=== PATIENT | male | born 1945 | race Caucasian/White ===

== ENCOUNTER → 2017-03-01 | Outpatient (CLI) | payer MEDICARE, OTHER | END | disposition home or self-care (01) | LOC: GMAJ 10:23 | PROVIDERS: ATTEND Family Medicine | DX: Z12.5 Encounter for screening for malignant neoplasm of prostate (principal) ==

== ENCOUNTER → 2017-04-21 | Outpatient (CLI) | payer MEDICARE, OTHER | END | disposition home or self-care (01) | LOC: GMAJ 11:17 | PROVIDERS: ATTEND Family Medicine | DX: Z51.81 Encounter for therapeutic drug level monitoring (principal) ==

== ENCOUNTER 2017-04-24 11:14 | Emergency (ER) | payer MEDICARE, OTHER ==
[2017-04-24 11:42] VITALS: TEMP 97
[2017-04-24] MEDS ORDERED: HYDROcodone 10MG/APAP 325MG 1 EA TAB PO ONE (12:21)
--- NOTE | 2017-04-24 12:35 | RAD ---
EXAM DESCRIPTION: Foot,Right 3 Views CLINICAL HISTORY: 71 years Male, Pain @ 1st MTP joint COMPARISON: None. FINDINGS: 3 views of the right foot show no acute fracture or malalignment. There is only minimal joint space narrowing at the first MTP joint with mild overlying soft tissue swelling. No focal bone lesion. There are calcaneal enthesophytes at the insertion sites of the plantar fascia and Achilles tendon. IMPRESSION: Slight joint space narrowing at the first MTP joint with overlying mild soft tissue swelling. No focal bone lesion or acute right foot abnormality. Calcaneal spurring. Electronically signed by: Abhilash Herbert MD 04/24/2017 12:33 PM CDT Workstation: [id number]
--- NOTE | 2017-04-24 13:08 | ED.PDOC ---
History of Present Illness - General Chief Complaint: Lower Extremity Injury Stated Complaint: toe pain Time Seen by Provider: 04/24/17 11:53 Source: patient, RN notes reviewed, Vital Signs reviewed Exam Limitations: no limitations - History of Present Illness Initial Comments: Patient comes to ER with c/o pain in his right great toe that started yesterday. Reports last week he stubbed his L great toe and had similar pain but denies any injury to the right. Occurred: yesterday Pain - Lower Extremity: severe: Right Foot Method of Injury: unknown Improving Factors: rest Worsening Factors: movement Allergies/Adverse Reactions: Allergies Metoclopramide [From Reglan] Allergy (Verified 04/24/17 11:34) Penicillins Allergy (Verified 04/24/17 11:34) Home Medications: Ambulatory Orders Aspirin [Baby Aspirin] 81 mg PO DAILY 04/15/14 Cholecalciferol [Vitamin D] 1,000 unit PO DAILY 04/15/14 Citalopram Hydrobromide [Celexa] 20 mg PO DAILY 04/15/14 Diltiazem HCl Coated Beads [Diltiazem Cd] 300 mg PO DAILY 04/15/14 Metformin HCl [Metformin HCl ER] 500 mg PO BID 04/15/14 Naproxen 250 mg PO DAILY 04/15/14 Niacin (Antihyperlipidemic) [Niaspan] 1,000 mg PO DAILY 04/15/14 Olmesartan Medoxomil-Hydrochlo [Benicar Hct] 1 tab PO DAILY 04/15/14 Omeprazole [Prilosec Cap] 20 mg PO DAILY 04/15/14 Ranitidine HCl [Zantac] 300 mg PO DAILY 04/15/14 ALPRAZolam [Xanax] 0.25 mg PO 03/11/15 Zolpidem Tartrate [Ambien] 5 mg PO 03/11/15 Acetaminophen W/ Codeine [Tylenol W/ CODEINE #3] 1 - 2 ea PO Q4H PRN #20 Ciprofloxacin [Cipro] 500 mg PO BID #20 tab 03/12/15 Ondansetron [Zofran Odt] 4 mg PO QID PRN #10 tab 03/12/15 metroNIDAZOLE [Flagyl] 500 mg PO TID #30 tab 03/12/15 Acetamin W/Cod #3 Tab [Tylenol w/CODEINE #3] 1 ea PO Q4HR PRN #15 tab 04/24/17 Colchicine [Mitigare] 0.6 mg PO 5XD PRN #15 cap 04/24/17 Review of Systems - Review of Systems Constitutional: States: no symptoms reported Respiratory: States: no symptoms reported Cardiology: States: no symptoms reported Musculoskeletal: States: see HPI Skin: States: no symptoms reported Neurological: States: no symptoms reported All other Systems: No Change from Baseline Past Medical History (General) - Patient Medical History Hx Seizures: No Hx Stroke: No Hx Dementia: No Hx Asthma: No Hx of COPD: No Hx Cardiac Disorders: No Hx Congestive Heart Failure: No Hx Hypertension: Yes Hx Diabetes: Yes - type II Hx Gastroesophageal Reflux: Yes Hx Renal Disease: No Hx Cancer: No Hx of HIV: No Hx Hepatitis C: No Hx MRSA: No Surgical History: cholecystectomy - Vaccination History Hx Tetanus, Diphtheria Vaccination: No Hx Influenza Vaccination: No Hx Pneumococcal Vaccination: No - Social History Hx Tobacco Use: Yes Hx Alcohol Use: No Hx Substance Use: No Hx Substance Use Treatment: No Hx Depression: No Hx Physical Abuse: No Hx Emotional Abuse: No Hx Suspected Abuse: No - Female History Patient : No Family Medical History - Family History Mother Family History: Unknown Physical Exam - Physical Exam General Appearance: Alert, Comfortable, No apparent distress, Well Developed, Well Groomed, Well Hydrated, Well Nourished Neck: supple Cardiovascular/Respiratory: normal peripheral pulses, no respiratory distress Leg: normal inspection, no evidence of injury, normal ROM Ankle: normal inspection, non-tender, no evidence of injury, normal ROM Foot: limited ROM - R 1st MTP joint, soft tissue tenderness, swelling, other - Inflammed, erythematous and warm to touch over R 1st MTP joint Mental Status: alert, oriented x 3 Skin: normal color - except as noted above, warm/dry Comments: Vital Signs 04/24/17 11:23 Temperature 97.0 F L Pulse Rate [ 76 pulse ox] Respiratory 20 Rate Blood Pressure 98/55 [Left Arm] O2 Sat by Pulse 94 L Oximetry Progress - Progress Progress: 04/24/17 13:09 Pain improved with [place] 10mg PO - Results/Orders Results/Orders: Laboratory Tests 04/24/17 12:38 Uric Acid 9.6 H - EKG/XRAY/CT XRAY: R foot: soft tissue swelling @ 1st MTP joint, o/w nl per Radiologist Departure - Departure Clinical Impression: Gout involving toe of right foot Qualifiers: Gout etiology: idiopathic Chronicity: acute Qualified Code(s): M10.071 - Idiopathic gout, right ankle and foot Time of Disposition: 13:10 Disposition: Discharge to Home or Self Care Condition: Good Departure Forms: ED Discharge - Pt. Copy, Patient Portal Self Enrollment Instructions: DI for Gout Diet: resume usual diet Activity: increase activity as tolerated Referrals: Raheem Wu MD [Primary Care Provider] - 1-2 Weeks (To recheck Uric Acid level) Prescriptions: Acetamin W/Cod #3 Tab [Tylenol w/CODEINE #3] 1 ea PO Q4HR PRN #15 tab PRN Reason: Moderate To Severe Pain Colchicine [Mitigare] 0.6 mg PO 5XD PRN #15 cap PRN Reason: Moderate To Severe Pain Home Medications: Ambulatory Orders Aspirin [Baby Aspirin] 81 mg PO DAILY 04/15/14 Cholecalciferol [Vitamin D] 1,000 unit PO DAILY 04/15/14 Citalopram Hydrobromide [Celexa] 20 mg PO DAILY 04/15/14 Diltiazem HCl Coated Beads [Diltiazem Cd] 300 mg PO DAILY 04/15/14 Metformin HCl [Metformin HCl ER] 500 mg PO BID 04/15/14 Naproxen 250 mg PO DAILY 04/15/14 Niacin (Antihyperlipidemic) [Niaspan] 1,000 mg PO DAILY 04/15/14 Olmesartan Medoxomil-Hydrochlo [Benicar Hct] 1 tab PO DAILY 04/15/14 Omeprazole [Prilosec Cap] 20 mg PO DAILY 04/15/14 Ranitidine HCl [Zantac] 300 mg PO DAILY 04/15/14 ALPRAZolam [Xanax] 0.25 mg PO 03/11/15 Zolpidem Tartrate [Ambien] 5 mg PO 03/11/15 Acetaminophen W/ Codeine [Tylenol W/ CODEINE #3] 1 - 2 ea PO Q4H PRN #20 Ciprofloxacin [Cipro] 500 mg PO BID #20 tab 03/12/15 Ondansetron [Zofran Odt] 4 mg PO QID PRN #10 tab 03/12/15 metroNIDAZOLE [Flagyl] 500 mg PO TID #30 tab 03/12/15 Acetamin W/Cod #3 Tab [Tylenol w/CODEINE #3] 1 ea PO Q4HR PRN #15 tab 04/24/17 Colchicine [Mitigare] 0.6 mg PO 5XD PRN #15 cap 04/24/17
[2017-04-24 13:26] VITALS: BP 108/70; O2SAT 93
== END 2017-04-24 13:20 | disposition home or self-care (01) ==
LOC: ER 11:14
DX: M10.071 Idiopathic gout, right ankle and foot (principal); I10 Essential (primary) hypertension; E11.9 Type 2 diabetes mellitus without complications; Z87.891 Personal history of nicotine dependence; Z79.899 Other long term (current) drug therapy; Z88.0 Allergy status to penicillin; Z88.8 Allergy status to other drugs, medicaments and biological substances

== ENCOUNTER 2017-05-01 22:02 | Emergency (ER) | payer MEDICARE, OTHER ==
[2017-05-01 22:14] VITALS: TEMP 98.2; O2SAT 97
[2017-05-01] MEDS ORDERED: ASPIRIN (CHEWABLE) 81 MG TAB PO ONE (22:21)
[2017-05-01] MEDS: NITROGLYCERIN 0.4 MG 25 EA TAB SL ONE ×2 (22:25→23:30)
--- NOTE | 2017-05-01 22:39 | RAD ---
EXAM DESCRIPTION: Chest,1 View CLINICAL HISTORY: Chest pain COMPARISON: March 11, 2015 FINDINGS: Cardiac silhouette is within normal limits. There is subsegmental atelectasis or small focus of consolidation at the right lung base. There is no other focal parenchymal or pleural disease. Visualized osseous structures are within normal limits. No pulmonary vascular engorgement. Electronic cardiac device and lead are present. IMPRESSION: Possible small focus of consolidation in the right lung base. Otherwise normal. Electronically signed by: Wisam Quintanilla 05/01/2017 10:38 PM [facility], [place]
--- NOTE | 2017-05-01 22:56 | ED.PDOC ---
History of Present Illness - General Chief Complaint: Cardiovascular Problem Stated Complaint: Chest Pain Time Seen by Provider: 05/01/17 22:19 Source: patient, RN notes reviewed, Vital Signs reviewed Exam Limitations: no limitations - History of Present Illness Initial Comments: Patient comes in with c/o chest pain/epigastric fullness that started while eating @~16:00. No SOB but pain is worse with deep breathing. No nausea or diaphoresis. He is scheduled for Cardiac artery stenting on05/04/17. Last week had a defibulator placed. Timing/Duration: 4-6 hours Severity/Quality: moderate, dull, ingestion Location: epigastric Chest Pain Radiation: no radiation Activities at Onset: other - was eating dinner Prior Chest Pain/Cardiac Workup: cardiac cath, echocardiography, heart attack Improving Factors: nothing Worsening Factors: nothing Nitro Today/Relief: no nitro taken today Aspirin Treatment Today: 81 mg x 4, provided by ED Associated Symptoms: denies symptoms Allergies/Adverse Reactions: Allergies Metoclopramide [From Reglan] Allergy (Verified 05/01/17 22:14) Penicillins Allergy (Verified 05/01/17 22:14) Home Medications: Ambulatory Orders Aspirin [Baby Aspirin] 81 mg PO DAILY 04/15/14 Cholecalciferol [Vitamin D] 1,000 unit PO DAILY 04/15/14 Citalopram Hydrobromide [Celexa] 20 mg PO DAILY 04/15/14 Diltiazem HCl Coated Beads [Diltiazem Cd] 300 mg PO DAILY 04/15/14 Metformin HCl [Metformin HCl ER] 500 mg PO BID 04/15/14 Naproxen 250 mg PO DAILY 04/15/14 Niacin (Antihyperlipidemic) [Niaspan] 1,000 mg PO DAILY 04/15/14 Olmesartan Medoxomil-Hydrochlo [Benicar Hct] 1 tab PO DAILY 04/15/14 Omeprazole [Prilosec Cap] 20 mg PO DAILY 04/15/14 Ranitidine HCl [Zantac] 300 mg PO DAILY 04/15/14 ALPRAZolam [Xanax] 0.25 mg PO 03/11/15 Zolpidem Tartrate [Ambien] 5 mg PO 03/11/15 Acetaminophen W/ Codeine [Tylenol W/ CODEINE #3] 1 - 2 ea PO Q4H PRN #20 Ciprofloxacin [Cipro] 500 mg PO BID #20 tab 03/12/15 Ondansetron [Zofran Odt] 4 mg PO QID PRN #10 tab 03/12/15 metroNIDAZOLE [Flagyl] 500 mg PO TID #30 tab 03/12/15 Acetamin W/Cod #3 Tab [Tylenol w/CODEINE #3] 1 ea PO Q4HR PRN #15 tab 04/24/17 Colchicine [Mitigare] 0.6 mg PO 5XD PRN #15 cap 04/24/17 Review of Systems - Review of Systems Constitutional: States: no symptoms reported. Denies: diaphoresis, malaise Respiratory: States: no symptoms reported. Denies: short of breath Cardiology: States: see HPI, chest pain. Denies: palpitations Gastrointestinal/Abdominal: States: no symptoms reported. Denies: nausea Musculoskeletal: States: no symptoms reported Skin: States: no symptoms reported Neurological: States: no symptoms reported All other Systems: No Change from Baseline Past Medical History (General) - Patient Medical History Hx Seizures: No Hx Stroke: No Hx Dementia: No Hx Asthma: No Hx of COPD: No Hx Cardiac Disorders: Yes Hx Congestive Heart Failure: No Hx Pacemaker: Yes - 04/28/17 Hx Hypertension: Yes Hx Thyroid Disease: No Hx Diabetes: Yes - type II Hx Gastroesophageal Reflux: Yes Hx Renal Disease: No Hx Cancer: No Hx of HIV: No Hx Hepatitis C: No Hx MRSA: No Surgical History: cholecystectomy - Vaccination History Hx Tetanus, Diphtheria Vaccination: No Hx Influenza Vaccination: No Hx Pneumococcal Vaccination: Yes - Social History Hx Tobacco Use: Yes Hx Alcohol Use: Yes Hx Substance Use: No Hx Substance Use Treatment: No Hx Depression: No Feels Threatened In Home Enviroment: No Feels Threatened In a Relationship: No Hx Physical Abuse: No Hx Emotional Abuse: No Hx Suspected Abuse: No - Female History Patient : No Family Medical History - Family History Mother Family History: Unknown Physical Exam - Physical Exam General Appearance: Alert, Comfortable, No apparent distress, Well Developed, Well Groomed, Well Hydrated, Well Nourished Neck: non-tender, full range of motion, supple, normal inspection Respiratory: chest non-tender, lungs clear, normal breath sounds, no respiratory distress, no accessory muscle use Cardiovascular/Chest: no gallop, no murmur, tachycardia Gastrointestinal/Abdominal: normal bowel sounds, non tender, soft, no organomegaly, no pulsatile mass Extremity: normal range of motion, non-tender, normal inspection Neurologic: alert, normal mood/affect, oriented x 3 Skin Exam: normal color, warm/dry Comments: Vital Signs 05/01/17 05/01/17 05/01/17 22:02 22:05 22:09 Temperature 98.2 F Pulse Rate [ 111 H 111 H 111 H monitor] Respiratory 25 H Rate Blood Pressure 149/99 [Right Arm] O2 Sat by Pulse 97 Oximetry 05/01/17 22:29 Temperature Pulse Rate [ 109 H monitor] Respiratory Rate Blood Pressure 142/99 [Right Arm] O2 Sat by Pulse Oximetry Progress - Progress Progress: 05/01/17 23:07 Still having some mild discomfort after SLNTG X1 will give a second dose Will also give Lovenox 80mg SQ 05/01/17 23:20 On re-examination patient reports pain was 6/10 - gave SLNTG X 2 and pain is now 1/10. If not completely resolved in next few minutes will give 3rd SLNTG 05/01/17 23:39 Pain free after 3rd SLNTG - Results/Orders Results/Orders: Laboratory Tests 05/01/17 05/01/17 22:25 22:25 WBC 13.0 H RBC 5.16 Hgb 14.4 Hct 42.4 MCV 82.2 MCH 27.9 MCHC 34.0 RDW 15.8 H Plt Count 204 MPV 8.2 Absolute Neuts (auto) 9.60 H Absolute Lymphs (auto) 1.90 Absolute Monos (auto) 1.10 H Absolute Eos (auto) 0.30 Absolute Basos (auto) 0.10 Neutrophils % 74.4 Lymphocytes % 14.6 L Monocytes % 8.1 Eosinophils % 2.1 Basophils % 0.8 Sodium 136 Potassium 3.9 Chloride 104 Carbon Dioxide 24 Anion Gap 11.9 L BUN 20 H Creatinine 1.58 H BUN/Creatinine Ratio 12.7 Random Glucose 125 H Serum Osmolality 276.0 Calcium 9.6 Total Bilirubin 0.9 AST 18 ALT 21 Alkaline Phosphatase 56 Creatine Kinase 53 CK-MB (CK-2) 1.3 CK-MB (CK-2) % Not Reportable Troponin I 0.28 H* Serum Total Protein 7.9 Albumin 4.1 Globulin 3.8 H Albumin/Globulin Ratio 1.1 - EKG/XRAY/CT EKG: Sinus, Tachy, LVH, ST elevation - V1 & V2 Comments: L axis deviation, Departure - Departure Clinical Impression: Acute myocardial infarction Qualifiers: Myocardial infarction ST status: non-ST elevation myocardial infarction Qualified Code(s): I21.4 - Non-ST elevation (NSTEMI) myocardial infarction Time of Disposition: 23:21 Disposition: Transfer to Hospital Condition: Poor Departure Forms: ED Discharge - Pt. Copy, Patient Portal Self Enrollment Referrals: Raheem Wu MD [Primary Care Provider] - 1-2 Weeks Home Medications: Ambulatory Orders Aspirin [Baby Aspirin] 81 mg PO DAILY 04/15/14 Cholecalciferol [Vitamin D] 1,000 unit PO DAILY 04/15/14 Citalopram Hydrobromide [Celexa] 20 mg PO DAILY 04/15/14 Diltiazem HCl Coated Beads [Diltiazem Cd] 300 mg PO DAILY 04/15/14 Metformin HCl [Metformin HCl ER] 500 mg PO BID 04/15/14 Naproxen 250 mg PO DAILY 04/15/14 Niacin (Antihyperlipidemic) [Niaspan] 1,000 mg PO DAILY 04/15/14 Olmesartan Medoxomil-Hydrochlo [Benicar Hct] 1 tab PO DAILY 04/15/14 Omeprazole [Prilosec Cap] 20 mg PO DAILY 04/15/14 Ranitidine HCl [Zantac] 300 mg PO DAILY 04/15/14 ALPRAZolam [Xanax] 0.25 mg PO 03/11/15 Zolpidem Tartrate [Ambien] 5 mg PO 03/11/15 Acetaminophen W/ Codeine [Tylenol W/ CODEINE #3] 1 - 2 ea PO Q4H PRN #20 Ciprofloxacin [Cipro] 500 mg PO BID #20 tab 03/12/15 Ondansetron [Zofran Odt] 4 mg PO QID PRN #10 tab 03/12/15 metroNIDAZOLE [Flagyl] 500 mg PO TID #30 tab 03/12/15 Acetamin W/Cod #3 Tab [Tylenol w/CODEINE #3] 1 ea PO Q4HR PRN #15 tab 04/24/17 Colchicine [Mitigare] 0.6 mg PO 5XD PRN #15 cap 04/24/17 Transfer to Outside Facility - Transfer Information Accepting Provider:: Dr. Herbert Accepting Facility: [facility] Reason for Transfer: required specialist not available
[2017-05-01] MEDS ORDERED: NITROGLYCERIN 0.4 MG 25 EA TAB SL ONE (23:06)
[2017-05-01] MEDS ORDERED: ENOXAPARIN SODIUM 80 MG/0.8 ML SYG SUBCU ONE (23:16)
[2017-05-01 23:43] VITALS: BP 133/57
== END 2017-05-01 23:46 | disposition short-term general hospital (02) ==
LOC: ER 22:02
DX: I21.4 Non-ST elevation (NSTEMI) myocardial infarction (principal); Z87.891 Personal history of nicotine dependence; E11.9 Type 2 diabetes mellitus without complications; I10 Essential (primary) hypertension; K21.9 Gastro-esophageal reflux disease without esophagitis; Z95.0 Presence of cardiac pacemaker; Z79.899 Other long term (current) drug therapy; Z88.8 Allergy status to other drugs, medicaments and biological substances; Z88.0 Allergy status to penicillin; Z79.82 Long term (current) use of aspirin; Z95.810 Presence of automatic (implantable) cardiac defibrillator
CPT/HCPCS: 36415; 71010; 80053; 82550; 82553; 84484; 85025; 93005; J1650

== ENCOUNTER → 2017-06-06 | Outpatient (CLI) | payer MEDICARE, OTHER | END | disposition home or self-care (01) | LOC: GMAJ 14:32 | PROVIDERS: ATTEND Family Medicine | DX: I25.10 Atherosclerotic heart disease of native coronary artery without angina pectoris (principal) ==

== ENCOUNTER → 2017-08-01 | Outpatient (CLI) | payer MEDICARE, OTHER ==
--- NOTE | 2017-08-02 16:39 | US ---
EXAM DESCRIPTION: Renal CLINICAL HISTORY: 72 years Male, STAGE 4 KIDNEY DISEASE COMPARISON: None. TECHNIQUE: Real-time sonographic images of the kidneys, retroperitoneum, and urinary bladder are obtained. FINDINGS: The right kidney measures 10.9 x 4.5 x 4.8 cm. There is a hypoechoic probable cyst in the midpole renal pelvis adjacent to the cortex measuring 10 x 11 x 9 mm. No hydronephrosis. Mild diffuse thinning of the renal cortex is seen. Cortex is isoechoic to hyperechoic compared to the liver. Left kidney measures 9.3 x 6.1 x 5.4 cm. There is mild increased echogenicity of the left renal cortex that appears diffusely thinned. There are linear areas of increased echogenicity without posterior acoustic shadowing in the midpole cortex of the left kidney measuring 4 5 mm. Urinary bladder is not identified. The IVC and abdominal aorta. IMPRESSION: There is mild renal cortical thinning in both kidneys with increased cortical echogenicity suggesting chronic medical renal disease. No hydronephrosis. Probable hypoechoic 11 mm cyst in the midpole of the right kidney. This is not completely anechoic and follow-up imaging with ultrasound in 6 months is recommended to determine long-term stability. Question prominent vessels versus nonshadowing calculi in the midpole of the left kidney. Electronically signed by: Yfn Dominguez MD 08/02/2017 4:38 PM [facility]
== END ==
LOC: US 13:19
PROVIDERS: ATTEND Internal Medicine Nephrology
DX: N18.4 Chronic kidney disease, stage 4 (severe) (principal)

== ENCOUNTER → 2017-09-15 | Outpatient (CLI) | payer OTHER ==
--- NOTE | 2017-09-16 08:03 | RAD ---
EXAM DESCRIPTION: Shoulder,Right 2 or More Views CLINICAL HISTORY: SHOULDER PAIN COMPARISON: None Available. TECHNIQUE: Two views of the right shoulder. FINDINGS: There is adequate internal and external rotation. There is no fracture or dislocation. Calcification below the peripheral acromion on one view could be osteophyte or calcification in the supraspinatus tendon. Sternotomy wires are present with pacer defibrillator. AC joint appears intact. No focal bone lesion. Normal alignment on transaxillary view. IMPRESSION: Negative for fracture or dislocation. Electronically signed by: Tapan Candelario MD 09/16/2017 8:00 AM CDT
--- NOTE | 2017-09-16 08:04 | RAD ---
EXAM DESCRIPTION: Shoulder,Left 4 Views CLINICAL HISTORY: SHOULDER PAIN COMPARISON: None Available. TECHNIQUE: 4 views of the left shoulder. FINDINGS: There is adequate internal and external rotation. Cardiac pacer is present. There is no fracture or dislocation. Degenerative changes are seen at the AC joint with spurring projecting inferiorly. Transscapular Y view shows no malalignment. No focal bone lesion. Transaxillary view shows normal alignment. IMPRESSION: Degenerative changes at the left acromioclavicular joint. Electronically signed by: Tapan Candelario MD 09/16/2017 8:02 AM CDT
== END ==
LOC: RAD 08:45
PROVIDERS: ATTEND Orthopaedic Surgery
DX: M10.40 Other secondary gout, unspecified site (principal); M25.511 Pain in right shoulder; M25.512 Pain in left shoulder

== ENCOUNTER → 2017-10-12 | Outpatient (CLI) | payer OTHER | LOC: GMAJ 14:37 | PROVIDERS: ATTEND Family Medicine | DX: R06.02 Shortness of breath (principal) ==

== ENCOUNTER → 2017-10-17 | Outpatient (CLI) | payer OTHER | LOC: GMAJ 15:22 | PROVIDERS: ATTEND Family Medicine | DX: N18.4 Chronic kidney disease, stage 4 (severe) (principal) ==

== ENCOUNTER → 2018-02-01 | Outpatient (CLI) | payer OTHER | LOC: GMAJ 14:09 | PROVIDERS: ATTEND Family Medicine | DX: N18.9 Chronic kidney disease, unspecified (principal) ==

== ENCOUNTER → 2018-03-06 | Outpatient (CLI) | payer OTHER | LOC: GMAJ 17:41 | PROVIDERS: ATTEND Family Medicine | DX: Z12.5 Encounter for screening for malignant neoplasm of prostate (principal) ==

== ENCOUNTER → 2018-04-19 | Outpatient (CLI) | payer OTHER | LOC: GMAJ 08:30 | PROVIDERS: ATTEND Family Medicine | DX: N18.4 Chronic kidney disease, stage 4 (severe) (principal) ==

== ENCOUNTER 2019-01-15 11:28 | Emergency (ER) | payer OTHER ==
--- NOTE | 2019-01-15 11:48 | ED.PDOC ---
History of Present Illness - General Chief Complaint: Skin/Abrasion/Tear Stated Complaint: sunburn to left lower leg Time Seen by Provider: 01/15/19 11:44 Source: patient Exam Limitations: no limitations - History of Present Illness Initial Comments: the patient is a 73-year-old male presenting to the emergency room secondary to pain in his left leg related to a sunburn that he sustained 5 days ago. He sustained a second-degree burn to the medial distal [place] He does still have a few blisters. It is still quite uncomfortable. He also has a small area of the same to the right dorsal foot. He is concerned secondary to persistent pain. There is no obvious infection at this time though one may be trying to start. Severity: moderate Improving Factors: nothing Worsening Factors: nothing Associated Symptoms: denies symptoms Allergies/Adverse Reactions: Allergies Metoclopramide [From Reglan] Allergy (Verified 05/01/17 22:14) Penicillins Allergy (Verified 05/01/17 22:14) Home Medications: Ambulatory Orders Aspirin [Baby Aspirin] 81 mg PO DAILY 04/15/14 Cholecalciferol [Vitamin D] 1,000 unit PO DAILY 04/15/14 Citalopram Hydrobromide [Celexa] 20 mg PO DAILY 04/15/14 Diltiazem HCl Coated Beads [Diltiazem Cd] 300 mg PO DAILY 04/15/14 Metformin HCl [Metformin HCl ER] 500 mg PO BID 04/15/14 Naproxen 250 mg PO DAILY 04/15/14 Niacin (Antihyperlipidemic) [Niaspan] 1,000 mg PO DAILY 04/15/14 Olmesartan Medoxomil-Hydrochlo [Benicar Hct] 1 tab PO DAILY 04/15/14 Omeprazole [Prilosec Cap] 20 mg PO DAILY 04/15/14 Ranitidine HCl [Zantac] 300 mg PO DAILY 04/15/14 ALPRAZolam [Xanax] 0.25 mg PO 03/11/15 Zolpidem Tartrate [Ambien] 5 mg PO 03/11/15 Acetaminophen W/ Codeine [Tylenol W/ CODEINE #3] 1 - 2 ea PO Q4H PRN #20 03/12/15 Ciprofloxacin [Cipro] 500 mg PO BID #20 tab 03/12/15 Ondansetron [Zofran Odt] 4 mg PO QID PRN #10 tab 03/12/15 metroNIDAZOLE [Flagyl] 500 mg PO TID #30 tab 03/12/15 Acetamin W/Cod #3 Tab [Tylenol w/CODEINE #3] 1 ea PO Q4HR PRN #15 tab 04/24/17 Colchicine [Mitigare] 0.6 mg PO 5XD PRN #15 cap 04/24/17 Sulfa/Trimeth 800/160 (Ds) Tab [Bactrim DS Tab] 1 ea PO BID #6 tab 01/15/19 Review of Systems - Review of Systems Constitutional: States: no symptoms reported EENTM: States: no symptoms reported Respiratory: States: no symptoms reported Cardiology: States: no symptoms reported Gastrointestinal/Abdominal: States: no symptoms reported Genitourinary: States: no symptoms reported Musculoskeletal: States: no symptoms reported Skin: States: see HPI Neurological: States: no symptoms reported Endocrine: States: no symptoms reported All other Systems: No Change from Baseline Past Medical History (General) - Patient Medical History Hx Seizures: No Hx Stroke: No Hx Dementia: No Hx Asthma: No Hx of COPD: No Hx Cardiac Disorders: Yes Hx Congestive Heart Failure: No Hx Pacemaker: Yes - 04/28/17 Hx Hypertension: Yes Hx Thyroid Disease: No Hx Diabetes: Yes - type II Hx Gastroesophageal Reflux: Yes Hx Renal Disease: No Hx Cancer: No Hx of HIV: No Hx Hepatitis C: No Hx MRSA: No - Vaccination History Hx Tetanus, Diphtheria Vaccination: No Hx Influenza Vaccination: No Hx Pneumococcal Vaccination: Yes - Social History Hx Tobacco Use: Yes Hx Alcohol Use: Yes Hx Substance Use: No Hx Substance Use Treatment: No Hx Depression: No Hx Physical Abuse: No Hx Emotional Abuse: No Hx Suspected Abuse: No - Female History Patient : No Family Medical History - Family History Mother Family History: Unknown Physical Exam - Physical Exam General Appearance: Alert, Comfortable, No apparent distress Eye Exam: bilateral normal Ears, Nose, Throat: hearing grossly normal Neck: full range of motion Respiratory: no respiratory distress, no accessory muscle use Cardiovascular/Chest: normal peripheral pulses, no edema, other - regular rate Peripheral Pulses: dorsalis pedis,right: 2+, dorsalis pedis,left: 2+ Rectal Exam: deferred Back Exam: normal inspection Extremity: normal range of motion, no pedal edema, no calf tenderness, normal capillary refill Neurologic: emt basic II-XII nml as tested, alert, normal mood/affect, oriented x 3 Skin Exam: other - see history of present illness Comments: Vital Signs - 24 hr 01/15/19 11:42 Temperature 97.6 F Pulse Rate [ 65 Left Brachial] Respiratory 20 Rate Blood Pressure 121/75 [Left Arm] O2 Sat by Pulse 97 Oximetry Progress - Progress Progress: 01/15/19 11:46 the patient is a 73-year-old male with second degree perkins to the left and right lower extremity. There is a possibility of a starting superimposed infection. He is going to be placed on Bactrim twice daily for 3 days. Additionally he can apply topical Eucerin or Cetaphil cream 2 or 3 times daily to prevent drying and cracking of the skin. He obviously needs to keep out of the sun at this point. ER warnings were given. Keep routine follow-up with primary care doctor. Departure - Departure Clinical Impression: Sunburn, second degree Disposition: Discharge to Home or Self Care Condition: Fair Departure Forms: ED Discharge - Pt. Copy, Patient Portal Self Enrollment Instructions: Sunburn (DC) Diet: diabetic diet Activity: increase activity as tolerated Referrals: Raheem Wu MD [Primary Care Provider] - 1-2 Weeks Prescriptions: Sulfa/Trimeth 800/160 (Ds) Tab [Bactrim DS Tab] 1 ea PO BID #6 tab Home Medications: Ambulatory Orders Aspirin [Baby Aspirin] 81 mg PO DAILY 04/15/14 Cholecalciferol [Vitamin D] 1,000 unit PO DAILY 04/15/14 Citalopram Hydrobromide [Celexa] 20 mg PO DAILY 04/15/14 Diltiazem HCl Coated Beads [Diltiazem Cd] 300 mg PO DAILY 04/15/14 Metformin HCl [Metformin HCl ER] 500 mg PO BID 04/15/14 Naproxen 250 mg PO DAILY 04/15/14 Niacin (Antihyperlipidemic) [Niaspan] 1,000 mg PO DAILY 04/15/14 Olmesartan Medoxomil-Hydrochlo [Benicar Hct] 1 tab PO DAILY 04/15/14 Omeprazole [Prilosec Cap] 20 mg PO DAILY 04/15/14 Ranitidine HCl [Zantac] 300 mg PO DAILY 04/15/14 ALPRAZolam [Xanax] 0.25 mg PO 03/11/15 Zolpidem Tartrate [Ambien] 5 mg PO 03/11/15 Acetaminophen W/ Codeine [Tylenol W/ CODEINE #3] 1 - 2 ea PO Q4H PRN #20 02/25 12/09 Ciprofloxacin [Cipro] 500 mg PO BID #20 tab 03/12/15 Ondansetron [Zofran Odt] 4 mg PO QID PRN #10 tab 03/12/15 metroNIDAZOLE [Flagyl] 500 mg PO TID #30 tab 03/12/15 Acetamin W/Cod #3 Tab [Tylenol w/CODEINE #3] 1 ea PO Q4HR PRN #15 tab 04/24/17 Colchicine [Mitigare] 0.6 mg PO 5XD PRN #15 cap 04/24/17 Sulfa/Trimeth 800/160 (Ds) Tab [Bactrim DS Tab] 1 ea PO BID #6 tab 01/15/19 Additional Instructions: the patient is a 73-year-old male with second degree perkins to the left and right lower extremity. There is a possibility of a starting superimposed infection. He is going to be placed on Bactrim twice daily for 3 days. Additionally he can apply topical Eucerin or Cetaphil cream 2 or 3 times daily to prevent drying and cracking of the skin. He obviously needs to keep out of the sun at this point. ER warnings were given. Keep routine follow-up with primary care doctor.
[2019-01-15 11:56] VITALS: BP 121/75; TEMP 97.6; O2SAT 97
== END 2019-01-15 11:58 | disposition home or self-care (01) ==
LOC: ER 11:28
DX: L55.1 Sunburn of second degree (principal); I10 Essential (primary) hypertension; E11.9 Type 2 diabetes mellitus without complications; K21.9 Gastro-esophageal reflux disease without esophagitis; I51.9 Heart disease, unspecified; Z95.0 Presence of cardiac pacemaker; Z87.891 Personal history of nicotine dependence; Z79.899 Other long term (current) drug therapy; Z79.82 Long term (current) use of aspirin; Z88.8 Allergy status to other drugs, medicaments and biological substances; Z88.0 Allergy status to penicillin; Z79.84 Long term (current) use of oral hypoglycemic drugs

== ENCOUNTER → 2020-01-29 | Outpatient (CLI) | payer OTHER ==
--- NOTE | 2020-01-29 11:14 | RAD ---
EXAM DESCRIPTION: Arthrogram Shoulder Right: RF CLINICAL HISTORY: IMPINGEMENT SYNDROME OF RIGHT SHOULDER. "Wear and tear, getting old, increasing pain, decreasing motion." COMPARISON: Post-arthrogram CT scan of the right shoulder same date. TECHNIQUE: The procedure was performed by Dr. Diallo; explained to the patient with risks and benefits. The patient gave verbal and written consent. Timeout performed to identify patient, examination to be performed, and correct body part. Contrast mixture of 10 mL non-ionic 300 contrast and 10 mL of sterile normal saline was prepared. Patient supine on the fluoroscopic table with right shoulder in external rotation. The anterior mid superior right glenohumeral joint was localized by fluoroscopy. The skin was marked, then prepped and draped in a sterile fashion. Intradermal, subcutaneous and intramuscular Xylocaine 1% was given for topical anesthesia. A 1.5 inch 25-gauge needle was introduced into the anterior superior right glenohumeral joint capsule under fluoroscopic visualization. A test injection of 2 cc of non-ionic 300 was performed under fluoroscopy. Additional 8 CC of contrast mixture was then injected under fluoroscopy. The patient tolerated the procedure well. Active exercise. Patient was transferred to the CT suite for spiral-axial and reconstruction imaging. No immediate complications. 1 AP frontal image of right shoulder in external rotation after contrast injection recorded for the patient's permanent medical record. Total fluoroscopic time was 1 minute. Dose 8.26 mGy. DAP: 1.03 Gy-cm2. IMPRESSION: Successful, fluoroscopic-guided right shoulder arthrogram performed by Dr. Diallo, prior to CT scan of the right shoulder. Please refer to those images and report. Electronically signed by: Wisam Diallo MD 01/29/2020 11:13 AM CDT
--- NOTE | 2020-01-29 13:28 | CT ---
Study: CT Arthrogram of the Right Shoulder. Indication: IMPINGEMENT SYNDROME OF RIGHT SHOULDER Technique: Axial CT of the right shoulder was performed after intra-articular injection of contrast. Coronal and sagittal reformats performed. Please see the accompanying report regarding the procedural portion of this exam. This exam was performed according to our departmental dose-optimization program, which includes automated exposure control, adjustment of the mA and/or kV according to patient size and/or use of iterative reconstruction technique. Comparison: None. Findings: Severe hypertrophic AC joint osteoarthritis. Type III acromion with moderate lateral downsloping. Superior migration humeral head with narrowing the subacromial space to 15 mm. Irregular high-grade articular tearing throughout the supraspinatus tendon insertion. Tear defect measures 21 mm AP by 14 mm transverse width less pronounced articular tearing throughout the critical zone infraspinatus tendon. Both tendons are elongated with medial myotendinous retraction by approximately 20 mm. Subscapularis tendinosis and attenuation. Teres minor tendon intact. Mild to moderate atrophy and grade 2-3 fatty infiltration rotator cuff musculature, most pronounced at the infraspinatus muscle belly. No rupture of the long head biceps tendon. Circumferential labral truncation and degeneration. Minimal glenohumeral joint osteoarthritis. No acute fracture. Impression: Irregular high-grade articular tearing of the supraspinatus tendon with less pronounced articular tearing of the infraspinatus tendon insertion. Atrophy and fatty infiltration rotator cuff musculature as above. Circumferential labral truncation and degeneration. Minimal glenohumeral joint osteoarthritis Severe hypertrophic AC joint osteoarthritis. Electronically signed by: Aurelio Treviño MD 01/29/2020 1:24 PM CDT
== END ==
LOC: CT 09:10
PROVIDERS: ATTEND Family Medicine
DX: M75.41 Impingement syndrome of right shoulder (principal); M75.101 Unspecified rotator cuff tear or rupture of right shoulder, not specified as traumatic; M19.011 Primary osteoarthritis, right shoulder; S43.431A Superior glenoid labrum lesion of right shoulder, initial encounter; M62.511 Muscle wasting and atrophy, not elsewhere classified, right shoulder

== ENCOUNTER → 2020-04-07 | Outpatient (CLI) | payer OTHER | LOC: LAB.O 09:39 | PROVIDERS: ATTEND Orthopaedic Surgery | DX: Z01.818 Encounter for other preprocedural examination (principal) ==

== ENCOUNTER 2020-04-14 17:43 | Emergency (ER) | payer OTHER ==
[2020-04-14] MEDS ORDERED: SODIUM CHLORIDE 0.9% (FLUSH) 10 ML SYG IV PRN (17:57)
--- NOTE | 2020-04-14 18:00 | ED.PDOC ---
History of Present Illness - General Time Seen by Provider: 04/14/20 17:57 Source: patient - History of Present Illness Initial Comments: 74-year-old male with past medical history of hypertension, CHF who was sent to the ED by his PCP for chief complaint of low blood pressure and paleness. Patient reports that he became ill 4 days ago at home after eating some [place] food. He felt that he had a foodborne illness. He reports several episodes of nonbloody nonbilious emesis as well as watery diarrhea that day. Reports very little vomiting and diarrhea since then. However, he reports he has felt generally weak since then. He has had decreased appetite and p.o. intake as well. He was his cardiology clinic visit this afternoon where he was noted to have a low blood pressure 80s/40s and appeared pale. He was sent to the ED for evaluation. Currently the patient complains only of feeling generally weak, mild to moderate in nature. Denies any abdominal pain, fevers, chills, chest pain, cough, sore throat, shortness of breath, leg swelling, urinary symptoms. No known recent sick contacts. PCP is Dr. Wu Allergies/Adverse Reactions: Allergies Metoclopramide [From Reglan] Allergy (Verified 04/14/20 18:08) Penicillins Allergy (Verified 04/14/20 18:08) Home Medications: Ambulatory Orders Aspirin [Baby Aspirin] 81 mg PO BEDTIME 04/15/14 Cholecalciferol [Vitamin D] 2,000 unit PO BEDTIME 04/15/14 Omeprazole [Prilosec Cap] 40 mg PO DAILY 04/15/14 Ranitidine HCl [Zantac] 150 mg PO BEDTIME 04/15/14 Zolpidem Tartrate [Ambien] 10 mg PO BEDTIME 03/11/15 Atorvastatin Calcium [Lipitor] 40 mg PO DAILY 01/15/19 Carvedilol [Coreg] 6.25 mg PO BID 01/15/19 Febuxostat [Uloric] 40 mg PO DAILY 01/15/19 Furosemide [Lasix] 40 mg PO DAILY 01/15/19 Mirtazapine [Remeron] 30 mg PO BEDTIME 01/15/19 Sitagliptin Phosphate [Januvia] 25 mg PO DAILY 01/15/19 Spironolactone 25 mg PO DAILY 01/15/19 Sulfa/Trimeth 800/160 (Ds) Tab [Bactrim DS Tab] 1 ea PO BID #6 tab 01/15/19 Review of Systems - Review of Systems Review of Systems: 04/14/20 18:20 as per HPI All other Systems: Reviewed and Negative Past Medical History (General) - Patient Medical History Hx Seizures: No Hx Stroke: No Hx Dementia: No Hx Asthma: No Hx of COPD: No Hx Cardiac Disorders: Yes Hx Congestive Heart Failure: No Hx Pacemaker: Yes - 04/28/17 Hx Hypertension: Yes Hx Thyroid Disease: No Hx Diabetes: Yes - type II Hx Gastroesophageal Reflux: Yes Hx Renal Disease: No Hx Cancer: No Hx of HIV: No Hx Hepatitis C: No Hx MRSA: No - Vaccination History Hx Tetanus, Diphtheria Vaccination: No Hx Influenza Vaccination: No Hx Pneumococcal Vaccination: Yes - Social History Hx Tobacco Use: Yes Hx Alcohol Use: Yes Hx Substance Use: No Hx Substance Use Treatment: No Hx Depression: No Hx Physical Abuse: No Hx Emotional Abuse: No Hx Suspected Abuse: No - Female History Patient : No Family Medical History - Family History Mother Family History: Unknown Physical Exam - Physical Exam General Appearance: Alert, Comfortable, No apparent distress Eye Exam: bilateral normal Ears, Nose, Throat: hearing grossly normal, normal ENT inspection, normal pharynx Neck: full range of motion, supple, normal inspection Respiratory: lungs clear, normal breath sounds, no respiratory distress, no accessory muscle use Cardiovascular/Chest: normal peripheral pulses, regular rate, rhythm, no edema, no gallop, no JVD, no murmur Peripheral Pulses: radial,right: 2+, radial,left: 2+ Gastrointestinal/Abdominal: non tender, soft, no organomegaly Back Exam: normal inspection, no CVA tenderness, no vertebral tenderness Extremity: normal range of motion, non-tender, normal inspection, no pedal edema, no calf tenderness, normal capillary refill Neurologic: rolled glass crosscutter II-XII nml as tested, no motor/sensory deficits, alert, normal mood/affect, oriented x 3 Skin Exam: warm/dry, pallor - Slightly pale throughout Progress - Progress Progress: 04/14/20 18:21 Generalized weakness, hypotension -Suspect most likely due to volume depletion/dehydration. Consider also foodborne illness, viral gastroenteritis, colitis, acute pancreatitis, COVID-19, flu, strep, pneumonia, ACS, CHF, other -Obtain blood work, UA, cardiac work-up, swabs for Covid/flu/strep -Blood pressure noted 90s/50s on arrival, borderline tachycardia. Will give gentle IV fluid bolus with 500 cc normal saline and reevaluate 04/14/20 20:40 -Patient was noted to have critical low hemoglobin and hematocrit levels of 6.1/18, PLTs wnl. Rectal exam revealed black stool in the rectal vault - hemoccult positive. Noted to have K 5.7, BUN 66, Cr 3.6 (baseline appears <1). Serum WBC nml, lactate 1.5. COVID-19/Flu negative. O+ blood type. -Begun transfusion of 2 units PRBCs. For hyperkalemia, begin medical treatment with calcium gluconate 1000 mg IV, albuterol nebs. The repeat prior to treatment is 5.5. -Patient has remained hemodynamically stable. He is without active/ongoing blood loss. CT of the abdomen and pelvis was obtained which revealed no acute processes or evidence of hemorrhage. -I spoke with the hospitalist at [facility], Dr. Hatch, who accepts the patient for admission. Patient stable to go via ground EMS. The reason for transfer is need for urgent GI consultation given concern for acute blood loss anemia caused by possible GI bleed. Patient has no history of this in the past. He does take a baby aspirin but no other anticoagulation is listed. Rafat Adrian MD Billing #[id number] 04/14/20 17:57 IV Care:Saline Lock per Protoc QSHIFT Telemetry .ONCE Sodium Chloride 0.9% (Flush) [Saline Flush Syringe] 10 ml IV PRN PRN 04/14/20 17:58 URINALYSIS Stat 04/14/20 18:00 EKG STAT 04/14/20 18:19 STREP A SCREEN CULTURE Stat 04/14/20 18:50 PACKED CELLS,LR Stat TYPE AND SCREEN Stat 04/14/20 19:19 Hold Metformin x 48Hrs [id number] 04/14/20 19:29 Sodium Chloride 0.9% 1000ML [Ns 1000 ml] 1,000 ml IVS .KVO 04/14/20 20:09 BMP [BASIC METABOLIC PANEL] Stat LD-L/LDH Stat 04/15/20 09:00 Pulse Ox Daily Laboratory Results - last 24 hr 04/14/20 04/14/20 04/14/20 18:00 18:10 18:10 WBC 8.9 RBC 2.34 L Hgb 6.6 L* Hct 19.5 L MCV 83.4 MCH 28.1 MCHC 33.6 RDW 16.3 H Plt Count 232 MPV 8.4 Absolute Neuts (auto) 6.90 H Absolute Lymphs (auto) 1.40 Absolute Monos (auto) 0.40 Absolute Eos (auto) 0.20 Absolute Basos (auto) 0.10 Neutrophils % 76.7 Lymphocytes % 15.2 L Monocytes % 4.5 Eosinophils % 2.7 Basophils % 0.9 Sodium 133 L Potassium 5.7 H Chloride 106 Carbon Dioxide 18 L Anion Gap 14.7 BUN 66 H Creatinine 3.66 H BUN/Creatinine Ratio 18.0 Random Glucose 151 H Serum Osmolality 288.3 Lactic Acid Calcium 9.0 Total Bilirubin 0.5 AST 19 ALT 13 Alkaline Phosphatase 42 Troponin I 0.02 B-Natriuretic Peptide 25.0 Serum Total Protein 6.4 Albumin 3.3 Globulin 3.1 Albumin/Globulin Ratio 1.1 Stool Occult Blood Group A Strep Rapid Patient ABO/Rh Antibody Screen Crossmatch 04/14/20 04/14/20 04/14/20 18:10 18:19 18:50 WBC 9.1 RBC 2.13 L Hgb 6.1 L* Hct 18.0 L MCV 84.6 MCH 28.4 MCHC 33.6 RDW 16.4 H Plt Count 217 MPV 7.7 Absolute Neuts (auto) 6.60 Absolute Lymphs (auto) 1.60 Absolute Monos (auto) 0.50 Absolute Eos (auto) 0.20 Absolute Basos (auto) 0.10 Neutrophils % 72.5 Lymphocytes % 18.0 L Monocytes % 5.9 Eosinophils % 2.6 Basophils % 1.0 Sodium Potassium Chloride Carbon Dioxide Anion Gap BUN Creatinine BUN/Creatinine Ratio Random Glucose Serum Osmolality Lactic Acid 1.5 Calcium Total Bilirubin AST ALT Alkaline Phosphatase Troponin I B-Natriuretic Peptide Serum Total Protein Albumin Globulin Albumin/Globulin Ratio Stool Occult Blood Group A Strep Rapid Negative Patient ABO/Rh Antibody Screen Crossmatch 04/14/20 04/14/20 18:50 19:25 WBC RBC Hgb Hct MCV MCH MCHC RDW Plt Count MPV Absolute Neuts (auto) Absolute Lymphs (auto) Absolute Monos (auto) Absolute Eos (auto) Absolute Basos (auto) Neutrophils % Lymphocytes % Monocytes % Eosinophils % Basophils % Sodium Potassium Chloride Carbon Dioxide Anion Gap BUN Creatinine BUN/Creatinine Ratio Random Glucose Serum Osmolality Lactic Acid Calcium Total Bilirubin AST ALT Alkaline Phosphatase Troponin I B-Natriuretic Peptide Serum Total Protein Albumin Globulin Albumin/Globulin Ratio Stool Occult Blood Positive H Group A Strep Rapid Patient ABO/Rh O POSITIVE Antibody Screen Negative Crossmatch See Detail - EKG/XRAY/CT EKG: Sinus - Normal sinus rhythm with right bundle branch block, heart rate 80, no ST elevations noted, left axis deviation present, intervals normal, compared to 05/01/2017 EKG appears largely unchanged XRAY: chest - No acute processes per my read Departure - Departure Clinical Impression: Melena, Acute blood loss anemia, Hyperkalemia Acute renal failure (ARF) Qualifiers: Acute renal failure type: unspecified Qualified Code(s): N17.9 - Acute kidney failure, unspecified Time of Disposition: 20:39 Disposition: Transfer to Hospital Condition: Fair Departure Forms: ED Discharge - Pt. Copy, Patient Portal Self Enrollment Referrals: Raheem Wu MD [Primary Care Provider] - 1-2 Weeks Home Medications: Ambulatory Orders Aspirin [Baby Aspirin] 81 mg PO BEDTIME 04/15/14 Cholecalciferol [Vitamin D] 2,000 unit PO BEDTIME 04/15/14 Omeprazole [Prilosec Cap] 40 mg PO DAILY 04/15/14 Ranitidine HCl [Zantac] 150 mg PO BEDTIME 04/15/14 Zolpidem Tartrate [Ambien] 10 mg PO BEDTIME 03/11/15 Atorvastatin Calcium [Lipitor] 40 mg PO DAILY 01/15/19 Carvedilol [Coreg] 6.25 mg PO BID 01/15/19 Febuxostat [Uloric] 40 mg PO DAILY 01/15/19 Furosemide [Lasix] 40 mg PO DAILY 01/15/19 Mirtazapine [Remeron] 30 mg PO BEDTIME 01/15/19 Sitagliptin Phosphate [Januvia] 25 mg PO DAILY 01/15/19 Spironolactone 25 mg PO DAILY 01/15/19 Sulfa/Trimeth 800/160 (Ds) Tab [Bactrim DS Tab] 1 ea PO BID #6 tab 01/15/19 Critical Care Note - Critical Care Note Total Time (mins): 30 Comments: Critical Care Time: Upon my evaluation, this patient had a high probability of life-threatening deterioration due to acute blood loss anemia, which required my direct attention, intervention, and management. I have provided 30 minutes of critical care time exclusive of separately billable procedures. My time included: direct patient care, review of labs and radiology, obtaining history from and counseling the patient and the family, discussion with consultants and other medical personnel, documentation, and monitoring for potential decompensation. Transfer to Outside Facility - Transfer Information Decision to Transfer Date: 04/14/20 Decision to Transfer Time: 20:40 Reason for Transfer: required specialist not available - gastroenterology Accepting Provider:: Dr. Hatch Accepting Facility: [facility]
--- NOTE | 2020-04-14 18:16 | RAD ---
EXAM: Chest,1 View CLINICAL INDICATION: Hypotension COMPARISON: 05/01/2017 FINDINGS: A single view of the chest was obtained. Atherosclerotic calcifications are noted involving the aorta. The heart size is normal. The pulmonary vascularity is unremarkable. The lungs are clear.. Scattered surgical changes are noted. There is a left-sided cardiac device. There is no consolidation, infiltrate, pleural effusion, or pneumothorax. IMPRESSION: No evidence of active pulmonary disease. Electronically signed by: Keegan Villarreal MD 04/14/2020 6:14 PM CDT
[2020-04-14] MEDS ORDERED: SODIUM CHLORIDE 0.9% 500ML 500 ML IVS ONE ×2 (18:18→18:44)
[2020-04-14] MEDS ORDERED: SODIUM CHLORIDE 0.9% 1000ML 1,000 ML ONE (19:23)
[2020-04-14] MEDS ORDERED: SODIUM CHLORIDE 0.9% 1000ML 1,000 ML IVS PRN (19:29)
[2020-04-14] MEDS ORDERED: ACETAMINOPHEN 325 MG TAB PO ONE (19:29)
[2020-04-14] MEDS ORDERED: diphenhydrAMINE HCL 25 MG CAP PO ONE (19:29)
[2020-04-14] MEDS ORDERED: ONDANSETRON INJ 4 MG/2 ML VIAL IV ONE (19:53)
--- NOTE | 2020-04-14 19:53 | CT ---
EXAM: Abdoment/Pelvis w/o Contrast CLINICAL INDICATION: Low hematocrit, patient bleeding, identify source COMPARISON: 03/11/2015 TECHNIQUE: The CT scan was done using contiguous axial 2.5 mm noncontrast sections through the abdomen and pelvis. This exam was performed according to our departmental dose-optimization program, which includes automated exposure control, adjustment of the mA and/or kV according to patient size and/or use of iterative reconstruction technique. FINDINGS: The visualized portions of the lung bases are clear. The gallbladder is surgically absent. The liver, adrenal glands, pancreas, kidneys, and spleen have a normal CT appearance. The aorta contains atherosclerotic calcifications without evidence of aneurysm. There is diverticulosis of the colon without findings of acute diverticulitis. The prostate gland is mildly enlarged measuring 3.9 x 4.6 cm. There are no dilated loops of small bowel. There is no intraperitoneal or retroperitoneal hemorrhage. There is no free air, free fluid, or abscess. IMPRESSION: 1. No evidence of an acute intra-abdominal process. No hemorrhage is identified. 2. Diverticulosis. 3. Enlarged prostate gland. Electronically signed by: Keegan Villarreal MD 04/14/2020 7:51 PM CDT
[2020-04-14] MEDS ORDERED: DEXTROSE 50% 25 GM/50 ML SYG IV ONE (20:37)
[2020-04-14] MEDS ORDERED: INSULIN, REG.(HUMAN) 100 U/ML VIAL SUBCU ONE (20:37)
[2020-04-14] MEDS ORDERED: CALCIUM GLUCONATE INJ 1 GM/10 ML VIAL IV ONE (20:38)
[2020-04-14] MEDS ORDERED: ALBUTEROL SULFATE 2.5 MG/3 ML VIAL NEB ONE (20:38)
[2020-04-14 20:59] VITALS: BP 115/62; TEMP 96.6; O2SAT 97
== END 2020-04-14 21:00 | disposition short-term general hospital (02) ==
LOC: ER 17:43
DX: K92.1 Melena (principal); D62 Acute posthemorrhagic anemia; E87.5 Hyperkalemia; N17.9 Acute kidney failure, unspecified; I10 Essential (primary) hypertension; E11.9 Type 2 diabetes mellitus without complications; K21.9 Gastro-esophageal reflux disease without esophagitis; I45.10 Unspecified right bundle-branch block; Z88.0 Allergy status to penicillin; Z79.82 Long term (current) use of aspirin; Z95.0 Presence of cardiac pacemaker; Z20.828 Contact with and (suspected) exposure to other viral communicable diseases
CPT/HCPCS: 36415; 71045; 74176; 80048; 80053; 82270; 83605; 83615; 83880; 84484; 85025; 86850; 86900; 86901; 86922; 87070; 87502; 87635; 87880; 93005; J2405; J7030; J7040; J7611; P9016; Q0163

== ENCOUNTER 2020-04-23 18:16 | Emergency (ER) | payer OTHER ==
[2020-04-23] MEDS ORDERED: SODIUM CHLORIDE 0.9% (FLUSH) 10 ML SYG IV PRN (18:39)
--- NOTE | 2020-04-23 18:44 | ED.PDOC ---
History of Present Illness - General Chief Complaint: GI Problem Time Seen by Provider: 04/23/20 18:27 Information Source: patient, RN notes reviewed, Vital Signs reviewed, family, old records Exam Limitations: no limitations - History of Present Illness Initial Comments: Patient is a 74-year-old male with past medical history of hypertension and CHF who presents to ED with 4-hour history of blood in his stool. States he noticed bright in stool 4 times with loose bowel movements. Denies any recent fever, nausea, vomiting or abdominal pain. He denies feeling light headed or dizzy and denies CP or SOB. States he was seen here 10 days ago for severe anemia and found dark-colored stools. He was transfused several units of blood and transferred to [place] where he had an endoscopy and colonoscopy with no active bleeding found. He was discharged home and started on no new medications. He takes aspirin and Plavix, but no other blood thinners. GI Dr. Coughlin Review of Systems - Review of Systems Constitutional: Denies: chills, fever EENTM: Denies: blurred vision, ear pain, throat pain Respiratory: Denies: cough, short of breath Cardiology: Denies: chest pain, palpitations, syncope Gastrointestinal/Abdominal: States: other - loose stool with BRB. Denies: abdominal pain, nausea Musculoskeletal: Denies: back pain, neck pain Skin: States: no symptoms reported Neurological: Denies: headache, paresthesia All other Systems: Reviewed and Negative Past Medical History (General) - Patient Medical History Hx Seizures: No Hx Stroke: No Hx Dementia: No Hx Asthma: No Hx of COPD: No Hx Cardiac Disorders: Yes Hx Congestive Heart Failure: No Hx Pacemaker: Yes - 04/28/17 Hx Hypertension: Yes Hx Thyroid Disease: No Hx Diabetes: Yes - type II Hx Gastroesophageal Reflux: Yes Hx Renal Disease: No Hx Cancer: No Hx of HIV: No Hx Hepatitis C: No Hx MRSA: No - Vaccination History Hx Tetanus, Diphtheria Vaccination: No Hx Influenza Vaccination: No Hx Pneumococcal Vaccination: Yes - Social History Hx Tobacco Use: Yes Hx Alcohol Use: Yes Hx Substance Use: No Hx Substance Use Treatment: No Hx Depression: No Hx Physical Abuse: No Hx Emotional Abuse: No Hx Suspected Abuse: No - Female History Patient : No Family Medical History - Family History Mother Family History: Unknown Physical Exam - Physical Exam General Appearance: Alert, Comfortable, No apparent distress Eyes, Ears, Nose, Throat Exam: pharynx normal Neck: full range of motion, supple Respiratory: chest non-tender, lungs clear, normal breath sounds, no respiratory distress Cardiovascular/Chest: regular rate, rhythm, no murmur Gastrointestinal/Abdominal: non tender, soft, no pulsatile mass, other - NTTP in all quadrants Back Exam: no CVA tenderness, no vertebral tenderness Extremity: normal range of motion, non-tender, normal inspection Neurologic: no motor/sensory deficits, alert, normal mood/affect Skin Exam: normal color, warm/dry Progress - Progress Progress: 04/23/20 20:17 Pt was in ED 04/14/20 with HGB 6.1, dark colored stool and BARBARA with creatinine of 3 and sent to [facility] and had EGD and colonoscopy that pt reports no active bleeding found. Today HGB is 8.9 and creatinine is 2.1 which are improved from previous in our EHR. I am attempting to get records for [facility] of most recent labs prior to discharge DC summary. 04/23/20 20:42 Pt has had 1 large foul smelling BM in ED with large amount of dark maroon colored blood. He has no abdominal pain, fever, leukocytosis or abdominal tend erness. he had CT A/P here 10 days ago for GI bleed that was normal. Pt states the first BM today with blood was bright red and they have become progressively darker each time. His VS have been stable. Hgb 8.9, but I have not been able to get medical records from [facility] for most recent blood work results after transfusions. I have d/w pt I am concerned if he goes home with continued bleeding his condition could worsen. [facility] declines transfer based on capacity at this time. Pt wishes to try [facility] facility for transfer and urgent GI evaluation for GI Bleed and anemia. 04/23/20 21:19 Updated pateint. He states he does not want to be transferred if is is not going to be able to go to [facility]. Asking to be discharged home and he will schedule outpatient evaluation with GI. I have d/w Mick Elizondo, hospitalist. States he would not transfuse unless Hgb < 7 and would check a 4 hour H/H. Will d/w pt repeat H/H in ED and possibly DC home with close outpt f/u if stable. Pt agrees. 04/23/20 21:25 Pt agreeable and prefers repeat H/H in ED 04/23/20 21:30 D/W Dr. Mcneill, hospitalist [facility], who accepts transfer. 04/23/20 21:42 Pt has declined transfer at this time. He will agree to repeat H/H in ED at this time and further discussion. He understands that this may not be a rue marker of GI bleeding, but if it is dropping or VS changing 04/23/20 21:57 THR Transfer line called back and [facility] did not have a bed. I talked to Dr. Barragan, hospitalist at [facility] [address] [facility] and has accepted transfer if pt willing to go. Will await repeat H/H and d/w pt and son. 04/23/20 22:02 Repeat hgb has dropped from 8.9-->8.2. I have had ongoing discussion with patient and son of his condition and my concern that his Hgb will continue dropping unless seen by GI for urgent consult for further evaluation and treatment. Pt and son both agree and refuse transfer that has been set up to [facility] [address] [facility] and do not want alternative facility at this time. Son states patient's is also ill at home and patient does not want to be transferred for GI evaluation. Multiple attempts were made to get patient to facility, but patient has refused. Will DC home and he will f/u with his PCP Dr. Wu for recheck in the morning and I have recommended he see his GI doctor tomorrow as well. Extensive return to ED precautions given. Pt and son both feel going home is in his best interest at this time. - Results/Orders Results/Orders: EKG- sinus rhythm, rate 79, wide QRS, nonspecific ST abnormality 04/23/20 18:39 Sodium Chloride 0.9% (Flush) [Saline Flush Syringe] 10 ml IV PRN PRN 04/23/20 18:40 IV Care:Saline Lock per Protoc QSHIFT 04/23/20 18:41 TYPE AND SCREEN Stat 04/23/20 18:45 EKG STAT Laboratory Results - last 24 hr 04/23/20 04/23/20 04/23/20 18:25 19:00 19:00 WBC 10.1 RBC 2.94 L Hgb 8.9 L Hct 25.4 L MCV 86.2 MCH 30.1 MCHC 35.0 RDW 16.1 H Plt Count 253 MPV 7.8 Absolute Neuts (auto) 7.10 H Absolute Lymphs (auto) 1.80 Absolute Monos (auto) 0.70 Absolute Eos (auto) 0.40 Absolute Basos (auto) 0.10 Neutrophils % 69.8 Lymphocytes % 17.8 L Monocytes % 6.8 Eosinophils % 4.3 Basophils % 1.3 PT 9.8 INR < 1.00 PTT (SP) 27.6 Sodium Potassium Chloride Carbon Dioxide Anion Gap BUN Creatinine BUN/Creatinine Ratio Random Glucose Serum Osmolality Calcium Total Bilirubin AST ALT Alkaline Phosphatase Serum Total Protein Albumin Globulin Albumin/Globulin Ratio Stool Occult Blood Positive H 04/23/20 04/23/20 19:00 20:30 WBC RBC Hgb Hct MCV MCH MCHC RDW Plt Count MPV Absolute Neuts (auto) Absolute Lymphs (auto) Absolute Monos (auto) Absolute Eos (auto) Absolute Basos (auto) Neutrophils % Lymphocytes % Monocytes % Eosinophils % Basophils % PT INR PTT (SP) Sodium 137 Potassium 5.5 H Chloride 108 Carbon Dioxide 22 Anion Gap 12.5 BUN 41 H Creatinine 2.14 H BUN/Creatinine Ratio 19.2 Random Glucose 121 H Serum Osmolality 285.2 Calcium 8.4 Total Bilirubin 0.5 AST 14 ALT 11 Alkaline Phosphatase 45 Serum Total Protein 5.9 L Albumin 3.1 L Globulin 2.8 Albumin/Globulin Ratio 1.1 Stool Occult Blood Positive H Departure - Departure Clinical Impression: Acute blood loss anemia GI (gastrointestinal bleed) Qualifiers: GI bleed type/associated pathology: melena Qualified Code(s): K92.1 - Melena CKD (chronic kidney disease) Qualifiers: Chronic kidney disease stage: unspecified stage Qualified Code(s): N18.9 - Chronic kidney disease, unspecified Time of Disposition: 22:07 Disposition: Discharge to Home or Self Care Condition: Fair Departure Forms: ED Discharge - Pt. Copy, Patient Portal Self Enrollment Instructions: Gastrointestinal Bleeding (DC) Diet: resume usual diet Referrals: Raheem Wu MD [Primary Care Provider] - 1-2 Days Home Medications: Ambulatory Orders Aspirin [Baby Aspirin] 81 mg PO BEDTIME 04/15/14 Cholecalciferol [Vitamin D] 2,000 unit PO BEDTIME 04/15/14 Omeprazole [Prilosec Cap] 40 mg PO DAILY 04/15/14 Ranitidine HCl [Zantac] 150 mg PO BEDTIME 04/15/14 Zolpidem Tartrate [Ambien] 10 mg PO BEDTIME 03/11/15 Atorvastatin Calcium [Lipitor] 40 mg PO DAILY 01/15/19 Carvedilol [Coreg] 6.25 mg PO BID 01/15/19 Febuxostat [Uloric] 40 mg PO DAILY 01/15/19 Furosemide [Lasix] 40 mg PO DAILY 01/15/19 Mirtazapine [Remeron] 30 mg PO BEDTIME 01/15/19 Sitagliptin Phosphate [Januvia] 25 mg PO DAILY 01/15/19 Spironolactone 25 mg PO DAILY 01/15/19 Sulfa/Trimeth 800/160 (Ds) Tab [Bactrim DS Tab] 1 ea PO BID #6 tab 01/15/19 Additional Instructions: You have been seen for blood in stool and anemia. My concern is you will continue losing blood through GI tract and need to be seen by a GI doctor for further evaluation. You will need to f/u with your PCP or GI in the morning for recheck. Transfer to Outside Facility - Transfer Information Decision to Transfer Date: 04/23/20 Decision to Transfer Time: 20:47 Reason for Transfer: specialized care not available
[2020-04-23 18:45] VITALS: TEMP 97.8
[2020-04-23 22:16] VITALS: BP 112/70; O2SAT 98
== END 2020-04-23 22:16 | disposition home or self-care (01) ==
LOC: ER 18:16
DX: K92.1 Melena (principal); D62 Acute posthemorrhagic anemia; N18.9 Chronic kidney disease, unspecified; E11.22 Type 2 diabetes mellitus with diabetic chronic kidney disease; I13.0 Hypertensive heart and chronic kidney disease with heart failure and stage 1 through stage 4 chronic kidney disease, or unspecified chronic kidney disease; K21.9 Gastro-esophageal reflux disease without esophagitis; I50.9 Heart failure, unspecified; Z87.891 Personal history of nicotine dependence; Z95.0 Presence of cardiac pacemaker; Z79.82 Long term (current) use of aspirin; Z79.02 Long term (current) use of antithrombotics/antiplatelets; Z79.899 Other long term (current) drug therapy

== ENCOUNTER → 2020-04-24 | Outpatient (CLI) | payer OTHER ==
[~2020-04-24] MED LIST: ACETAMINOPHEN 325 MG TAB PO ONE; SODIUM CHLORIDE 0.9% 500ML 500 ML IVS SCH; diphenhydrAMINE HCL 50 MG/ML VIAL IV ONE
[2020-04-25 14:55] VITALS: O2SAT 98
[2020-04-25 16:14] VITALS: BP 127/80; TEMP 97.4
== END ==
LOC: INFRM 16:34
PROVIDERS: ATTEND Family Medicine
DX: K92.2 Gastrointestinal hemorrhage, unspecified (principal)
CPT/HCPCS: 86850; 86900; 86901; 86922; J1200; P9016

== ENCOUNTER → 2020-04-30 | Outpatient (CLI) | payer OTHER ==
--- NOTE | 2020-05-01 14:13 | US ---
EXAM DESCRIPTION: Venous,Lower Extremity RT: ULTRASOUND. CLINICAL HISTORY: EFFUSION, RIGHT FOOT COMPARISON: None Available. TECHNIQUE: Roland-scale and doppler sonographic evaluation of the deep venous system of the right lower extremity. FINDINGS: Doppler evaluation shows normal color flow and normal phasicity and augmentation of the right common femoral vein, right femoral vein, popliteal vein, right greater saphenous vein, junction with the CFV. Also normal color flow and normal phasicity and augmentation of the peroneal, and posterior tibial vein. The right lower extremity deep veins were completely compressible; normal occlusion with transducer pressure. Roland-scale survey showed no echogenic thrombus within these veins. IMPRESSION: 1. Duplex ultrasound evaluation of the right lower extremity deep venous system showing no evidence of thrombosis. Electronically signed by: Wisam Diallo MD 05/01/2020 2:12 PM [facility]
== END ==
LOC: US 10:35
PROVIDERS: ATTEND Family Medicine
DX: M25.474 Effusion, right foot (principal)